=== PATIENT | female | born 2005 | race Caucasian/White ===

== ENCOUNTER 2024-10-29 08:17 | Emergency (ER) | payer SELFPAY ==
[~2024-10-29] VITALS: Ht 165.1 cm; Wt 73.0 kg
[2024-10-29 08:18] VITALS: O2SAT 100
[2024-10-29] MEDS: IBUPROFEN 600MG TABLET PO ONE (08:41)
[2024-10-29] MEDS ORDERED: IBUP-1455 MT (10:06)
[2024-10-29 10:15] VITALS: BP 124/79; PULSE 74; RESP 18; TEMP 36.6; O2SAT 100
== END 2024-10-29 10:19 | disposition home or self-care (01) ==
LOC: ER 08:33
DX: S63.92XA Sprain of unspecified part of left wrist and hand, initial encounter (principal); M54.2 Cervicalgia; R07.89 Other chest pain; V89.2XXA Person injured in unspecified motor-vehicle accident, traffic, initial encounter; Y93.89 Activity, other specified; Y92.410 Unspecified street and highway as the place of occurrence of the external cause; Y99.8 Other external cause status
CPT/HCPCS: 71045; 73130; 81025; 99284